=== PATIENT | male | born 1930 | race Caucasian/White ===

== ENCOUNTER → 2017-03-29 | Outpatient (CLI) | payer OTHER, MEDICARE ==
[~2017-03-29] MED LIST: ASPEC81 PO; ATOR-22 PO; CARV3.12 PO; ENOX100I SQ; INDA1TAB3 PO; LISI-461 PO; MAGN400T5 PO; MULT-845 PO; WARF5TAB90 PO
--- NOTE | 2017-04-05 06:19 | CODING QUERY MEDICAL NECESSITY ---
SUPPORTING DIAGNOSIS NEEDED Dr. Christian, A supporting diagnosis is required for the test/procedure performed on this patient in order for us to be reimbursed by the patient's insurance. Please provide a supporting diagnosis for the following test/procedure listed below next to the test name along with your signature. *If there is no additional diagnosis for this patient that would support the following test/procedure please document that below next to the test/procedure. Test(s)/Procedure(s) that require a supporting diagnosis: * 22893 PSA DIAGNOSIS: DATE OF SERVICE: 03/29/17 Provider Signature: Date: Thank you Blair Rodrigues [facility] Information Management Once completed, please kindly fax back to [phone] For questions please call [phone]
== END | disposition home or self-care (01) ==
LOC: C.LAB1850 14:53
PROVIDERS: ATTEND Internal Medicine
DX: I25.10 Atherosclerotic heart disease of native coronary artery without angina pectoris (principal); N40.1 Benign prostatic hyperplasia with lower urinary tract symptoms

== ENCOUNTER → 2018-04-08 | Outpatient (CLI) | payer OTHER, MEDICARE ==
[2018-04-08 17:01] LABS: BLOOD UREA NITROGEN 18 mg/dl (7-18); CALCIUM 8.8 mg/dl (8.5-10.1); CARBON DIOXIDE 32 mmol/L (21-32); CREATININE 0.88 mg/dl (0.60-1.40); GLUCOSE 100 mg/dl (70-99); POTASSIUM 3.4 mmol/L (3.5-5.1); SODIUM 137 mmol/L (136-145)
== END | disposition home or self-care (01) ==
LOC: C.LAB1850 16:00
PROVIDERS: ATTEND Internal Medicine Cardiovascular Disease
DX: I25.10 Atherosclerotic heart disease of native coronary artery without angina pectoris (principal); I71.2 Thoracic aortic aneurysm, without rupture; R60.9 Edema, unspecified

== ENCOUNTER → 2018-04-13 | Outpatient (CLI) | payer OTHER, MEDICARE ==
[~2018-04-13] MED LIST changes: +OPTIRAY 320 IV PRN
--- NOTE | 2018-04-13 12:34 | DIAGNOSTIC IMAGING REPORT ---
CHEST COMBO ANGIOGRAPHY CLINICAL HISTORY: Aneurysm of thoracic aorta. COMPARISON STUDY: Chest CT October 27, 2013. TECHNIQUE: Unenhanced and arterial phase imaging of the chest was performed. Intravenous injection of 93 cc of Optiray 320 was uneventful. Sagittal and coronal reconstructions were viewed as well as maximal intensity projections on an independent 3-D workstation. FINDINGS: No thoracic aortic dissection or intramural hematoma is noted. Dilatation of the ascending aorta is similar to exam of October 27, 2013. The ascending aorta measures 4.8 cm at the level of the main pulmonary artery. The caliber of the aortic root and descending thoracic aorta is normal. 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 This thrombus has increased since exam of October 27, 2013. Right middle lobe and lower lobe airspace opacity favors atelectasis. Elevation of the right hemidiaphragm is unchanged. There are mild asymmetric groundglass and nodular opacities within the right lung. No pneumothorax or pleural effusion is noted. Bony thorax and upper abdomen are unremarkable on this exam. IMPRESSION: 1. 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 No thoracic aortic dissection. 2. Interval increase in chronic pulmonary emboli within the distal right main pulmonary artery and right lower lobe pulmonary artery since CT of October 27, 2013. 3. Mild groundglass opacity with small nodular opacities within the right lung which may reflect atelectasis or a mild infectious process. 4. Moderate cardiomegaly and coronary artery calcification. Electronically signed by: Leonidas Montano M.D. 04/13/2018 12:32 PM Dictated Date/Time: 04/13/2018 12:19 PM
== END | disposition home or self-care (01) ==
LOC: C.CTS 12:02
PROVIDERS: ATTEND Internal Medicine Cardiovascular Disease
DX: I71.2 Thoracic aortic aneurysm, without rupture (principal); R91.8 Other nonspecific abnormal finding of lung field; I51.7 Cardiomegaly; I25.10 Atherosclerotic heart disease of native coronary artery without angina pectoris